=== PATIENT | male | born 1955 | race Caucasian/White ===

== ENCOUNTER 2019-07-26 22:01 | Observation (INO) ==
[2019-07-26] MEDS ORDERED: Ipratropium/Albuterol Neb 3 ML IH ONE (22:15)
[2019-07-26] MEDS ORDERED: Aspirin 81 MG TAB.CHEW PO ONE (22:15)
[2019-07-26] MEDS: Nitroglycerin 0.4 MG TAB.SUBL SL STA ×2 (22:40→22:50)
[2019-07-26 22:51] LABS: Basophils # 0.1 K/mcL (0.0-0.2); Basophils % 0.6 %; Eosinophils # 0.6 K/mcL (0.0-0.6); Eosinophils % 4.7 %; Hematocrit 46.1 % (37.5-50.1); Hemoglobin 14.9 g/dL (12.9-16.9); Immature Granulocytes % 0.7 % (0-4); Lymphocytes # 2.5 K/mcL (0.6-4.6); Lymphocytes % 18.6 %; Mean Corpuscular HGB Conc 32.3 g/dL (31.6-35.5); Mean Corpuscular Hemoglobin 27.4 pg (28.0-33.3); Mean Corpuscular Volume 84.7 fL (83.0-100.0); Mean Platelet Volume 9.8 fL (9.4-12.4); Monocytes # 1.4 K/mcL (0.0-1.3); Monocytes % 10.2 %; Neutrophils # 8.8 K/mcL (1.6-8.9); Platelet Count 421 K/mcL (140-400); Red Blood Count 5.44 M/mcL (4.19-5.50); Red Cell Distribution Width 14.2 % (11.5-14.5); Segmented Neutrophils % 65.2 %; White Blood Count 13.5 K/mcL (4.3-11.1)
[2019-07-26 22:59] LABS: Prothrombin Time 11.5 Seconds (9.4-12.1)
[2019-07-26 23:01] LABS: Activated Partial Thrombo Time 43.5 Seconds (26.0-36.0)
[2019-07-26] MEDS ORDERED: Isovue-370 500 ML BOTTLE IVP ONE (23:10)
[2019-07-26 23:12] LABS: BUN/Creatinine Ratio 19 (6-26); Blood Urea Nitrogen 15 mg/dL (8-23); Carbon Dioxide 22 mEq/L (23-29); Chloride 104 mEq/L (98-107); Glucose 155 mg/dL (70-105); Potassium 4.7 mEq/L (3.5-5.1); Sodium 136 mEq/L (136-145); eGFR For African Americans > 60 (> 60); eGFR For Non-African Americans > 60 (> 60)
[2019-07-26] MEDS ORDERED: Azithromycin 500 MG in 0.9 % Sodium Chloride 250 ML IVPB ONE (23:12)
[2019-07-26 23:13] LABS: Calcium 9.3 mg/dL (8.6-10.3); Osmolality,Calculated 286 (280-300); Troponin I < 0.03 ng/mL (< 0.04)
[2019-07-26] MEDS ORDERED: 0.9 % Sodium Chloride 1,000 ML IVC ONE (23:21)
[2019-07-27] MEDS: cefTRIAXone 2,000 MG in Water for inj. (sterile) 20 ML IVP SCH ×2 (00:09→23:42)
[2019-07-27] MEDS ORDERED: Naloxone 0.4 MG/ML INJ IVP PRN (02:47)
[2019-07-27] MEDS ORDERED: Albuterol 2.5 MG/3 ML NEBULIZER IH PRN (02:50)
[2019-07-27] MEDS ORDERED: *HR* Dextrose 50 % in Water (Syg) 50 ML SYRINGE IVP PRN (02:51)
[2019-07-27] MEDS ORDERED: D5% in Water 1,000 ML IVC PRN (02:51)
[2019-07-27] MEDS ORDERED: Dextrose Gel 15 GM/37.5 ML TUBE PO PRN ×2 (02:51)
[2019-07-27 03:56] LABS: Hematocrit 40.7 % (37.5-50.1); Hemoglobin 12.7 g/dL (12.9-16.9); Mean Corpuscular HGB Conc 31.2 g/dL (31.6-35.5); Mean Corpuscular Hemoglobin 27.3 pg (28.0-33.3); Mean Corpuscular Volume 87.5 fL (83.0-100.0); Mean Platelet Volume 9.9 fL (9.4-12.4); Platelet Count 337 K/mcL (140-400); Red Blood Count 4.65 M/mcL (4.19-5.50); Red Cell Distribution Width 14.2 % (11.5-14.5); White Blood Count 11.1 K/mcL (4.3-11.1)
[2019-07-27 04:15] LABS: BUN/Creatinine Ratio 18 (6-26); Blood Urea Nitrogen 14 mg/dL (8-23); Calcium 8.1 mg/dL (8.6-10.3); Carbon Dioxide 22 mEq/L (23-29); Chloride 107 mEq/L (98-107); Glucose 196 mg/dL (70-105); Osmolality,Calculated 288 (280-300); Potassium 4.1 mEq/L (3.5-5.1); Sodium 136 mEq/L (136-145); eGFR For African Americans > 60 (> 60); eGFR For Non-African Americans > 60 (> 60)
[2019-07-27 04:16] LABS: Troponin I < 0.03 ng/mL (< 0.04)
[2019-07-27] MEDS: Ipratropium/Albuterol Neb 3 ML IH SCH ×4 (04:50→22:55)
[2019-07-27] MEDS: predniSONE 20 MG TABLET PO SCH (08:07)
[2019-07-27] MEDS: Insulin LISPRO 300 UNITS/3 ML VIAL SQ SCH ×4 (08:07→20:32)
[2019-07-27] MEDS: Aspirin Enteric Coated 81 MG Tablet PO SCH (11:54)
[2019-07-27 12:47] LABS: Adenovirus Not Detected (Not Detect); Bordetella Pertussis Not Detected (Not Detect); Chlamydophila pneumoniae Not Detected (Not Detect); Coronavirus 229E Not Detected (Not Detect); Coronavirus HKU1 Not Detected (Not Detect); Coronavirus NL63 Not Detected (Not Detect); Coronavirus OC43 Not Detected (Not Detect); Human Metapneumovirus Not Detected (Not Detect); Human Rhinovirus/Enterovirus DETECTED (Not Detect); Influenza A Subtype 2009 H1 Not Detected (Not Detect); Influenza A Untypeable Not Detected (Not Detect); Influenza B Not Detected (Not Detect); Mycoplasma pneumoniae Not Detected (Not Detect); Parainfluenza Virus 1 Not Detected (Not Detect); Parainfluenza Virus 2 Not Detected (Not Detect); Parainfluenza Virus 3 Not Detected (Not Detect); Parainfluenza Virus 4 Not Detected (Not Detect); Respiratory Syncytial Virus Not Detected (Not Detect)
[2019-07-27] MEDS: Primidone 50 MG TABLET PO SCH ×2 (14:11→20:33)
[2019-07-27] MEDS ORDERED: Azithromycin 500 MG in 0.9 % Sodium Chloride 250 ML IVPB SCH (23:00)
[2019-07-28] MEDS: Ipratropium/Albuterol Neb 3 ML IH SCH ×4 (04:10→22:29)
[2019-07-28] MEDS: predniSONE 20 MG TABLET PO SCH (08:52)
[2019-07-28] MEDS: Primidone 50 MG TABLET PO SCH ×3 (08:52→19:42)
[2019-07-28] MEDS: Aspirin Enteric Coated 81 MG Tablet PO SCH (08:52)
[2019-07-28] MEDS: cefTRIAXone 2,000 MG in 0.9 % Sodium Chloride Mini Bag 100 ML IVPB SCH (08:52)
[2019-07-28] MEDS: Azithromycin 250 MG TABLET PO SCH (08:52)
[2019-07-28] MEDS: Insulin LISPRO 300 UNITS/3 ML VIAL SQ SCH ×4 (08:53→23:30)
[2019-07-28] MEDS: *HR* Heparin 5,000 UNIT/ML VIAL SQ SCH (23:30)
[2019-07-29] MEDS: Ipratropium/Albuterol Neb 3 ML IH SCH ×2 (03:56→10:48)
[2019-07-29] MEDS: *HR* Heparin 5,000 UNIT/ML VIAL SQ SCH (06:18)
[2019-07-29] MEDS: Aspirin Enteric Coated 81 MG Tablet PO SCH (08:37)
[2019-07-29] MEDS: Azithromycin 250 MG TABLET PO SCH (08:37)
[2019-07-29] MEDS: Insulin LISPRO 300 UNITS/3 ML VIAL SQ SCH (08:38)
[2019-07-29] MEDS: predniSONE 20 MG TABLET PO SCH (08:38)
[2019-07-29] MEDS: cefTRIAXone 2,000 MG in 0.9 % Sodium Chloride Mini Bag 100 ML IVPB SCH (08:38)
[2019-07-29] MEDS: Primidone 50 MG TABLET PO SCH (08:38)
[2019-07-29 12:00] VITALS: BP 134/74
== END 2019-07-29 12:30 | disposition home or self-care (01) ==
LOC: 2ANU 22:01 → EMEROOARM 22:01 → SUATTDRO 07-27 01:23 → 2ANU 07-27 02:15
PROVIDERS: ADMIT Family Medicine; ATTEND Internal Medicine